=== PATIENT | male | born 1965 | race Two or more races ===

== ENCOUNTER 2019-12-21 23:39 | Emergency (ER) | payer SELFPAY ==
[~2019-12-21] VITALS: Ht 177.8 cm; Wt 82.3 kg
[2019-12-21 23:41] VITALS: BP 136/85
[2019-12-22] MEDS ORDERED: HYDROcodone/APAP 5/325 TABLET PO ONE (00:30)
[2019-12-22] MEDS ORDERED: HYDROcodone/APAP 5/325 TABLET ONE (00:48)
--- NOTE | 2019-12-22 00:50 | NUR ---
PT MEDICATED PER EMAR FOR 10/04 PAIN
--- NOTE | 2019-12-22 00:58 | NUR ---
DC EDUCATION PROVIDED, PT DEMONSTRATES UNDERSTANDING. PT AMBULATED STEADILY TO DC WITH RN. FRIEND TO TRANSPORT PT HOME
== END 2019-12-22 01:00 | disposition home or self-care (01) ==
LOC: ED 12-22 00:57
DX: K04.7 Periapical abscess without sinus (principal); L03.211 Cellulitis of face; R22.0 Localized swelling, mass and lump, head
CPT/HCPCS: 99283